=== PATIENT | female | born 1955 | race Caucasian/White ===

== ENCOUNTER 2022-06-06 11:00 | Emergency (ER) | payer MEDICARE ==
[2022-06-06] MEDS ORDERED: Lidocaine 1% 5 ML VIAL INJECT ONE (11:13)
[2022-06-06] MEDS ORDERED: Diphtheria,Pertussis(Acell),Tetanus Vaccine 0.5 ML Syringe IM ONE (11:50)
== END 2022-06-06 12:22 | disposition home or self-care (01) ==
LOC: MW.ED 11:00
DX: S61.411A Laceration without foreign body of right hand, initial encounter (principal); Z23 Encounter for immunization; W26.8XXA Contact with other sharp object(s), not elsewhere classified, initial encounter
CPT/HCPCS: 12002; 90471; 90715; 99282; 99282-25

== ENCOUNTER 2022-06-10 19:03 | Emergency (ER) | payer MEDICARE, OTHER ==
[2022-06-10] MEDS ORDERED: Cephalexin 500 MG Cap PO ONE (21:04)
== END 2022-06-10 21:12 | disposition home or self-care (01) ==
LOC: MW.ED 19:03
DX: Z48.01 Encounter for change or removal of surgical wound dressing (principal); Z79.899 Other long term (current) drug therapy; Z86.16 Personal history of COVID-19
CPT/HCPCS: 99282; A9270

== ENCOUNTER 2022-06-17 12:41 | Emergency (ER) | payer MEDICARE, OTHER | END 2022-06-17 13:14 | disposition home or self-care (01) | LOC: MW.ED 12:41 | DX: S61.411D Laceration without foreign body of right hand, subsequent encounter (principal); Z48.02 Encounter for removal of sutures | CPT/HCPCS: 99281 ==